=== PATIENT | female | born 1970 | race Hispanic/Latino ===

== ENCOUNTER 2023-04-13 20:19 | Emergency (ER) | payer SELFPAY ==
[2023-04-13] MEDS ORDERED: FLUORESCEIN SODIUM 1 MG/WRAP ONE (20:39)
[2023-04-13] MEDS ORDERED: TETRACAINE HCL 0.5% 4ML OPTH ONE (20:39)
--- NOTE | 2023-04-13 20:39 | EDPHYS ---
Physician Documentation [facility] Name: Lorraine Lui Age: 53 yrs Sex: Female : 1970 Arrival Date: 04/13/2023 Time: 20:19 Bed 11 Private MD: ED Physician Sadi Bailon HPI: 04/13 23:04 This 53 yrs old Female presents to ER via Ambulatory with complaints of kb Foreign Body In Eye. 23:04 The patient is experiencing redness, irritation, The patient sustained a splash, to the kb right eye, caused by cleaning solution. Onset: The symptoms/episode began/occurred at 15:30. Duration: the symptoms are continuous. Aggravated by nothing. Alleviated by nothing. Associated signs and symptoms: Pertinent positives: None. Severity of symptoms: At their worst the symptoms were mild in the emergency department the symptoms are unchanged. The patient has not experienced similar symptoms in the past. The patient has not recently seen a physician. 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 - Social history:: Smoking status: Patient denies any tobacco usage or history of. ROS: 23:02 Constitutional: Negative for fever, chills, and weight loss. kb 23:02 Eyes: Positive for redness, of the right eye, irritation. 23:02 All other systems are negative. Exam: 23:02 Constitutional: This is a well developed, well nourished patient who is awake, alert, kb and in no acute distress. Head/Face: Normocephalic, atraumatic. ENT: Moist Mucous membranes Cardiovascular: Regular rate and rhythm with a normal S1 and S2. No gallops, murmurs, or rubs. No pulse deficits. Respiratory: Respirations even and unlabored. No increased work of breathing. Talking in full sentences Skin: Warm, dry with normal turgor. Normal color. MS/ Extremity: Pulses equal, no cyanosis. Neurovascular intact. Full, normal range of motion. Neuro: Awake and alert, GCS 15, oriented to person, place, time, and situation. Moves all extremities. Normal gait. 23:02 Eyes: Periorbital structures: appear normal, Pupils: equal, round, and reactive to light and accomodation, Extraocular movements: intact throughout, Conjunctiva: injected, in the right eye, Corneas: are normal, no evidence of abrasion, no foreign body, a fluorescein strip employed to appreciate the findings. Vital Signs: 20:59 BP 143 / 79; Pulse 86; Resp 19; Temp 98.6(TE); Pulse Ox 98% ; Weight 86.18 kg (R); kl Height 4 ft. 11 in. ; Pain 4/10; 20:59 Body Mass Index 38.37 (86.18 kg, 149.86 cm) kl 20:59 Pain Scale: Adult kl MDM: 20:25 Patient medically screened. kb 23:03 Differential diagnosis: Corneal abrasion of Corneal ulcer of Foreign body in Chemical kb conjunctivitis in Allergic conjunctivitis in Infectious conjunctivitis in. Data reviewed: vital signs, nurses notes. Counseling: I had a detailed discussion with the patient and/or guardian regarding the historical points, exam findings, and any diagnostic results supporting the discharge/admit diagnosis, the need for outpatient follow up, an opthalmologist, to return to the emergency department if symptoms worsen or persist or if there are any questions or concerns that arise at home. ED course: No FB, ulceration or abrasion upon exam. Pt has no visual changes. Eye flushed with saline by me. Educated to use prescribed ointment and follow up with ophthalmology for persistent symptoms. Educated on return precautions. Administered Medications: 21:02 Drug: Tetracaine Ophthalmic Drops 0.5 % 1 drops Route: Ophthalmic; Site: right eye; kl 21:02 Drug: Fluorescein Ophthalmic Strip 1 strip Route: Ophthalmic; Site: right eye; kl Disposition: 04/14 02:26 Co-signature as Attending Physician, Sadi Bailon MD I agree with the assessment sp4 and plan of care. I reviewed the patient's care provided by the Advanced Practice Provider and agree with the diagnosis and treatment plan. Disposition Summary: 04/13/23 20:38 Discharge Ordered Location: Home Condition: Stable kb Diagnosis - Unspecified conjunctivitis kb Followup: kb - With: Emergency Department - When: As needed - Reason: Worsening of condition Followup: kb - With: Private Physician - When: 2 - 3 days - Reason: Recheck today's complaints, Continuance of care, Re-evaluation by your physician Followup: kb - With: Kike Thompson MD - When: 2 - 3 days - Reason: Recheck today's complaints Discharge Instructions: - Discharge Summary Sheet kb - Chemical Conjunctivitis, Adult, [id number] kb Forms: - Medication Reconciliation Form kb - Thank You Letter kb - Antibiotic Education kb - Prescription Opioid Use kb - Patient Portal Instructions kb - Leadership Thank You Letter kb Prescriptions: - Erythromycin 5 mg/gram (0.5 %) Ophthalmic Ointment - apply 1 centimeter by OPHTHALMIC route 2-3 times daily for 7 days; 1 unit; kb Refills: 0, Product Selection Permitted Signatures: Frances Baker FNP-C FNP-Ckb Lewis, Kimberly, RN RN Sadi Perkins MD MD sp4
--- NOTE | 2023-04-13 21:04 | ER ---
Nurse's Notes [facility] Name: Lorraine Lui Age: 53 yrs Sex: Female : 1970 Arrival Date: 04/13/2023 Time: 20:19 Bed 11 Private MD: Diagnosis: Unspecified conjunctivitis Presentation: 04/13 20:59 Chief complaint: Patient states: right eye pain began after splashing eye with cleaning kl solution. Coronavirus screen: Vaccine status: Patient reports receiving the 2nd dose of the covid vaccine. Ebola Screen: Patient negative for fever greater than or equal to 101.5 degrees Fahrenheit, and additional compatible Ebola Virus Disease symptoms. Initial Sepsis Screen: Does the patient meet any 2 criteria? No. Patient's initial sepsis screen is negative. Does the patient have a suspected source of infection? No. Patient's initial sepsis screen is negative. Risk Assessment: Do you want to hurt yourself or someone else? Patient reports no desire to harm self or others. Onset of symptoms was April 13, 2023. 20:59 Method Of Arrival: Ambulatory 20:59 Acuity: WARREN 4 Triage Assessment: 21:01 General: Appears in no apparent distress. Behavior is calm, cooperative. Pain: Complains of pain in right eye Pain currently is 4 out of 10 on a pain scale. EENT: Eyes Sclera/Cornea are reddened in outer aspect of conjuctiva of right eye and inner aspect of conjuctiva of right eye. 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 - Social history:: Smoking status: Patient denies any tobacco usage or history of. Screenin:03 [facility] ED Fall Risk Assessment (Adult) History of falling in the last 3 months, kl including since admission No falls in past 3 months (0 pts). Abuse screen: Denies threats or abuse. Nutritional screening: No deficits noted. Tuberculosis screening: No symptoms or risk factors identified. Assessment: 21:02 Reassessment: Patient appears in no apparent distress at this time. Vital Signs: 20:59 BP 143 / 79; Pulse 86; Resp 19; Temp 98.6(TE); Pulse Ox 98% ; Weight 86.18 kg (R); kl Height 4 ft. 11 in. ; Pain 4/10; 20:59 Body Mass Index 38.37 (86.18 kg, 149.86 cm) kl 20:59 Pain Scale: Adult ED Course: 20:23 Patient arrived in ED. [email or web address] 20:25 Frances Baker FNP-C is [facility]. kb 20:25 Sadi Bailon MD is Attending Physician. kb 20:39 Kike Thompson MD is Referral Physician. kb 21:01 Triage completed. 21:02 Patient has correct armband on for positive identification. kl 21:03 No provider procedures requiring assistance completed. Assist provider with eye exam of right eye. using fluorescein stain, Performed by Frances CATHERINE Patient tolerated well. Patient did not have IV access during this emergency room visit. Patient admitted, IV remains in place. Administered Medications: 21:02 Drug: Tetracaine Ophthalmic Drops 0.5 % 1 drops Route: Ophthalmic; Site: right eye; kl 21:02 Drug: Fluorescein Ophthalmic Strip 1 strip Route: Ophthalmic; Site: right eye; Outcome: 20:38 Discharge ordered by . kb 21:03 Discharged to home ambulatory. kl 21:03 Condition: stable 21:03 Discharge instructions given to patient, Instructed on discharge instructions, follow up and referral plans. Demonstrated understanding of instructions, follow-up care, medications, Prescriptions given X 1. 21:04 Patient left the ED. Signatures: Frances Baker FNP-C FNP-Ckb Lewis, Kimberly, RN RN Della Briones [email or web address]
[2023-04-13 21:54] VITALS: BP 143/79; TEMP 98.6; O2SAT 98
== END 2023-04-13 21:04 | disposition home or self-care (01) ==
LOC: ER 20:19
DX: H10.9 Unspecified conjunctivitis (principal)
CPT/HCPCS: 99283